=== PATIENT | male | born 2005 | race Caucasian/White ===

== ENCOUNTER → 2024-02-17 | Outpatient (CLI) | payer OTHER, SELFPAY ==
[2024-02-17 12:44] LABS: Cholesterol 221 mg/dL (200); High Density Lipoprotein 83 mg/dL; T4 Free Direct 1.07 ng/dL (0.76-1.46); Triglycerides 53 mg/dL; Very Low Density Lipoprotein 11 mg/dL (5-40)
[2024-02-17 13:05] LABS: Hemoglobin A1c 5.5 % (3.8-5.6)
[2024-02-18 15:07] LABS: t-Transglutaminase IgA <2 U/mL (0-3)
== END | disposition home or self-care (01) ==
PROVIDERS: PCP Pediatrics; Referring Provider Pediatrics; Visit Provider Pediatrics
DX: E10.9 Type 1 diabetes mellitus without complications (principal)
CPT/HCPCS: 36415; 80061; 83036; 83516; 84403; 84439; 84443